=== PATIENT | female | born 1980 | race Caucasian/White ===

== ENCOUNTER → 2020-05-17 15:30 | Outpatient (CLI) | payer OTHER, SELFPAY | PROVIDERS: PCP Nurse Practitioner Family; Visit Provider Physician Assistant | DX: N89.8 Other specified noninflammatory disorders of vagina (principal) | CPT/HCPCS: 87210 ==

== ENCOUNTER → 2020-06-20 12:54 | Outpatient (CLI) | payer OTHER, SELFPAY | PROVIDERS: PCP Nurse Practitioner Family; Visit Provider Physician Assistant | DX: N89.8 Other specified noninflammatory disorders of vagina (principal) | CPT/HCPCS: 87086; 87210 ==

== ENCOUNTER → 2021-09-12 18:07 | Outpatient (CLI) | payer OTHER, SELFPAY ==
[2021-09-12 20:29] LABS: Urine N gonorrhoeae NOT DETECTED
[2021-09-12 21:10] LABS: Pregnancy Test Urine Negative (Negative)
[2021-09-12 21:22] LABS: Urine Chlamydia NOT DETECTED
== END ==
PROVIDERS: PCP Nurse Practitioner Family; Visit Provider Nurse Practitioner Family
DX: N89.8 Other specified noninflammatory disorders of vagina (principal)
CPT/HCPCS: 81025; 87077; 87086; 87186; 87210; 87491; 87591